=== PATIENT | female | born 1995 | race Caucasian/White ===

== ENCOUNTER 2016-12-16 12:48 | Emergency (ER) | payer SELFPAY ==
[~2016-12-16] VITALS: Ht 165.1 cm; Wt 62.0 kg
[2016-12-16] MEDS ORDERED: PREN1TAB80 PO (12:56)
[2016-12-16] MEDS ORDERED: ACETAMINOPHEN 500 MG TABLET PO ONE (13:30)
[2016-12-16 15:49] VITALS: BP 107/56
== END 2016-12-16 16:43 | disposition home or self-care (01) ==
LOC: EEVIPCON 12:51 → EMS 12:51
DX: O9A.211 Injury, poisoning and certain other consequences of external causes complicating pregnancy, first trimester (principal); S02.2XXA Fracture of nasal bones, initial encounter for closed fracture; S00.83XA Contusion of other part of head, initial encounter; Z3A.01 Less than 8 weeks gestation of pregnancy; Y04.2XXA Assault by strike against or bumped into by another person, initial encounter; Y93.89 Activity, other specified; Y92.89 Other specified places as the place of occurrence of the external cause; Y99.8 Other external cause status
CPT/HCPCS: 70486; 72125; 99284